=== PATIENT | female | born 1965 | race Caucasian/White ===

== ENCOUNTER 2018-07-13 01:29 | Emergency (ER) | payer OTHER ==
[~2018-07-13] VITALS: Ht 162.6 cm; Wt 63.5 kg
--- NOTE | 2018-07-13 01:50 | NUR ---
AFTER OBTAINING INTIAL VITAL AND EKG PATIENT REFUSING TO BE MONITOR. PACING ROOM AND ANXIOUS
--- NOTE | 2018-07-13 01:59 | NUR ---
PATIENT PULLED OUT IV
[2018-07-13] MEDS ORDERED: LORAZEPAM 2 MG/1 ML VIAL IM ONE (02:00)
[2018-07-13] MEDS ORDERED: HALOPERIDOL LACTATE 5 MG/1 ML VIAL IM ONE (02:00)
[2018-07-13] MEDS ORDERED: LORAZEPAM 2 MG/1 ML VIAL ONE (02:05)
[2018-07-13] MEDS ORDERED: HALOPERIDOL LACTATE 5 MG/1 ML VIAL ONE (02:05)
[2018-07-13 02:48] LABS: BASOPHILS % (AUTO) 0.5 % (0.0-2.0); EOSINOPHILS % (AUTO) 0.1 % (0.0-7.0); HEMATOCRIT 41.5 % (31.2-41.9); HEMOGLOBIN 13.8 g/dL (10.9-14.3); LYMPHOCYTES # (AUTO) 0.6 K/uL (20.0-40.0); LYMPHOCYTES % (AUTO) 8.3 % (20.5-51.5); MEAN CORPUSCULAR HEMOGLOBIN 31.4 uug (24.7-32.8); MEAN CORPUSCULAR HGB CONC 33 g/dL (32.3-35.6); MEAN CORPUSCULAR VOLUME 94.4 fL (75.5-95.3); MONOCYTES # (AUTO) 0.4 K/uL (2.0-10.0); MONOCYTES % (AUTO) 4.8 % (0.0-11.0); NEUTROPHILS # (AUTO) 6.7 K/uL (1.8-8.9); NEUTROPHILS % (AUTO) 86.3 % (38.5-71.5); PLATELET COUNT (AUTO) 216 K/uL (179-408); RED BLOOD CELL COUNT(AUTO) 4.39 MIL/uL (3.63-4.92); WHITE BLOOD COUNT (AUTO) 7.7 K/uL (3.8-11.8)
[2018-07-13 02:52] LABS: CARBON DIOXIDE 22 mmol/L (21-32); CHLORIDE 104 mmol/L (98-107); CREATININE 1.1 mg/dL (0.6-1.3); GLUCOSE 141 mg/dL (74-106); POTASSIUM 3.5 mmol/L (3.5-5.1); UREA NITROGEN, BLOOD 25 mg/dL (7-18)
[2018-07-13 02:57] LABS: ALANINE AMINOTRANSFERASE 26 U/L (14-59); ALKALINE PHOSPHATASE 86 U/L (50-136); ASPARTATE AMINOTRANSFERASE 26 U/L (15-37); BILIRUBIN,DIRECT 0.1 mg/dL (0.0-0.2); BILIRUBIN,TOTAL 0.3 mg/dL (0.2-1.0); TOTAL PROTEIN, SERUM 7.7 g/dL (6.4-8.2)
[2018-07-13 02:58] LABS: ACETAMINOPHEN < 2.0 ug/mL (10-30)
[2018-07-13 02:59] LABS: ETHANOL 68 MG/DL (0-0)
--- NOTE | 2018-07-13 04:45 | NUR ---
PATIENT SLEEPING WITH NO DISTRESS NOTED
--- NOTE | 2018-07-13 06:00 | NUR ---
PATIENT TOLERATED PO FLUID WITH NO N/V. A/OX3. SPEAKING IN CLEAR SENTANCES. DENIES SI,HOMICIDAL IDEATION.
[2018-07-13 06:13] VITALS: BP 145/78
--- NOTE | 2018-07-13 06:13 | NUR ---
Patient discharged to home in stable conditon. Written and verbal after care instructions given. Patient verbalizes understanding of instructions. WALKED OUT OF ER WITH NO DISTRESS NOTED
== END 2018-07-13 06:27 | disposition home or self-care (01) ==
LOC: ER 06:27
DX: F41.9 Anxiety disorder, unspecified (principal); Z88.0 Allergy status to penicillin
CPT/HCPCS: 36415; 71045; 80048; 80076; 85025; 93005; 96372 ×2; 99284; G0480 ×2; G0481; J1630; J2060; A4663

== ENCOUNTER 2023-04-10 18:49 | Emergency (ER) | payer MEDICAID, OTHER | END 2023-04-10 19:16 | disposition left against medical advice (07) | LOC: ER 18:58 | DX: F10.129 Alcohol abuse with intoxication, unspecified (principal) ==

== ENCOUNTER 2024-01-11 18:05 | Emergency (ER) | payer OTHER ==
[~2024-01-11] VITALS: Ht 160 cm; Wt 65.8 kg
[2024-01-11 18:48] LABS: BASOPHILS % (AUTO) 0.8 % (0.0-2.0); EOSINOPHILS # (AUTO) 0.3 K/uL (0.0-0.7); EOSINOPHILS % (AUTO) 4.3 % (0.0-7.0); HEMATOCRIT 41.5 % (31.2-41.9); HEMOGLOBIN 13.9 g/dL (10.9-14.3); LYMPHOCYTES # (AUTO) 1.6 K/uL (0.8-4.8); MEAN CORPUSCULAR HEMOGLOBIN 32.4 uug (24.7-32.8); MEAN CORPUSCULAR HGB CONC 33 g/dL (32.3-35.6); MONOCYTES # (AUTO) 0.5 K/uL (0.1-1.30); MONOCYTES % (AUTO) 8.1 % (0.0-11.0); NEUTROPHILS # (AUTO) 3.7 K/uL (1.8-8.9); NEUTROPHILS % (AUTO) 60.8 % (38.5-71.5); PLATELET COUNT (AUTO) 269 K/uL (179-408); RED BLOOD CELL COUNT(AUTO) 4.28 MIL/uL (3.63-4.92)
[2024-01-11 18:50] LABS: DIFFERENTIAL COMMENT 1
[2024-01-11 18:55] LABS: CALCIUM 8.9 mg/dL (8.5-10.1); CARBON DIOXIDE 25 mmol/L (21-32); CHLORIDE 104 mmol/L (98-107); CREATININE 0.8 mg/dL (0.6-1.3); GLUCOSE 105 mg/dL (74-106); POTASSIUM 3.7 mmol/L (3.5-5.1); SODIUM SERUM 141 mmol/L (136-145); UREA NITROGEN, BLOOD 18 mg/dL (7-18)
[2024-01-11 19:45] LABS: THYROID STIMULATING HORMONE 2.139 mIU/mL (0.358-3.740)
[2024-01-11] MEDS: IV NORMAL SALINE 500 ML IV ONE (20:20)
[2024-01-11 22:34] LABS: *BILIRUBIN,URIN NEGATIVE (NEGATIVE); *BLOOD, URINE NEGATIVE (NEGATIVE); *CLARITY,URINE CLEAR (CLEAR); *COLOR,URINE YELLOW (YELLOW); *KETONES,URINE TRACE (NEGATIVE); *PROTEIN,URINE NEGATIVE (NEGATIVE); *UROBILINOGEN,URINE 0.2 E.U./dl (NORMAL); LEUKOCYTE ESTERASE ,URINE NEGATIVE (NEGATIVE); NITRITE, URINE NEGATIVE (NEGATIVE); UGLUCOSE NEGATIVE (NEGATIVE)
[2024-01-11 22:50] LABS: RBC,URINE 0-3 /HPF (0-3)
[2024-01-11 22:51] LABS: BACTERIA,URINE FEW /HPF (NONE SEEN); CALCIUM OXALATE CRYSTALS,UR FEW /HPF (NONE SEEN); SQUAMOUS EPITHELIAL CELL,UR FEW /HPF (NONE SEEN); WBC,URINE 0-3 /HPF (0-3)
[2024-01-12 00:34] VITALS: BP 122/70; TEMP 97.9; O2SAT 96
== END 2024-01-12 00:30 | disposition home or self-care (01) ==
LOC: ER 18:05
DX: R55 Syncope and collapse (principal); K21.9 Gastro-esophageal reflux disease without esophagitis; F31.9 Bipolar disorder, unspecified; Z98.890 Other specified postprocedural states; Z88.0 Allergy status to penicillin
CPT/HCPCS: 99285; 96360; 71045; 80048; 81001; 82962; 83880; 84443; 85025; 84484 ×2; 36415; 93005; J7040; A4606; A4663

== ENCOUNTER 2024-05-10 22:29 | Emergency (ER) | payer OTHER ==
[~2024-05-10] VITALS: Ht 162.6 cm; Wt 54.4 kg
[2024-05-10 23:40] VITALS: BP 139/92; TEMP 98.6; O2SAT 98
== END 2024-05-10 23:41 | disposition home or self-care (01) ==
LOC: ER 22:29
DX: R07.9 Chest pain, unspecified (principal); R00.0 Tachycardia, unspecified; Z88.0 Allergy status to penicillin; K21.9 Gastro-esophageal reflux disease without esophagitis; F31.9 Bipolar disorder, unspecified; F41.9 Anxiety disorder, unspecified
CPT/HCPCS: 71045; 73110; A4606; A4663

== ENCOUNTER 2024-07-22 16:41 | Emergency (ER) | payer OTHER ==
[~2024-07-22] VITALS: Ht 160 cm; Wt 59.0 kg
[2024-07-22 18:47] LABS: BASOPHILS % (AUTO) 0.6 % (0.0-2.0); EOSINOPHILS # (AUTO) 0.3 K/uL (0.0-0.7); EOSINOPHILS % (AUTO) 4.7 % (0.0-7.0); HEMATOCRIT 40.1 % (31.2-41.9); HEMOGLOBIN 13.3 g/dL (10.9-14.3); LYMPHOCYTES # (AUTO) 1.9 K/uL (0.8-4.8); LYMPHOCYTES % (AUTO) 35.4 % (20.5-51.5); MEAN CORPUSCULAR HEMOGLOBIN 32.1 uug (24.7-32.8); MEAN CORPUSCULAR HGB CONC 33 g/dL (32.3-35.6); MEAN CORPUSCULAR VOLUME 96.8 fL (75.5-95.3); MONOCYTES # (AUTO) 0.5 K/uL (0.1-1.30); MONOCYTES % (AUTO) 8.9 % (0.0-11.0); NEUTROPHILS # (AUTO) 2.7 K/uL (1.8-8.9); NEUTROPHILS % (AUTO) 50.4 % (38.5-71.5); PLATELET COUNT (AUTO) 215 K/uL (179-408); RED BLOOD CELL COUNT(AUTO) 4.14 MIL/uL (3.63-4.92); RED CELL DISTRIBUTION WIDTH 13.3 % (12.3-17.7); WHITE BLOOD COUNT (AUTO) 5.4 K/uL (3.8-11.8)
[2024-07-22 18:53] LABS: CALCIUM 8.5 mg/dL (8.5-10.1); CARBON DIOXIDE 23 mmol/L (21-32); CHLORIDE 106 mmol/L (98-107); CREATININE 0.6 mg/dL (0.6-1.3); GLUCOSE 111 mg/dL (74-106); POTASSIUM 3.6 mmol/L (3.5-5.1); SODIUM SERUM 143 mmol/L (136-145); UREA NITROGEN, BLOOD 19 mg/dL (7-18)
[2024-07-22 18:59] LABS: ALANINE AMINOTRANSFERASE 31 U/L (14-59); ALBUMIN 3.4 g/dL (3.4-5.0); ALKALINE PHOSPHATASE 89 U/L (50-136); ASPARTATE AMINOTRANSFERASE 23 U/L (15-37); BILIRUBIN,DIRECT 0.1 mg/dL (0.0-0.2); BILIRUBIN,TOTAL 0.2 mg/dL (0.2-1.0); TOTAL PROTEIN, SERUM 6.6 g/dL (6.4-8.2)
[2024-07-23 06:09] VITALS: BP 122/78; O2SAT 98
== END 2024-07-23 06:27 | disposition home or self-care (01) ==
LOC: ER 17:02
DX: S52.692A Other fracture of lower end of left ulna, initial encounter for closed fracture (principal); F10.129 Alcohol abuse with intoxication, unspecified; M79.632 Pain in left forearm; M79.642 Pain in left hand; R51.9 Headache, unspecified; Y90.9 Presence of alcohol in blood, level not specified; Z88.0 Allergy status to penicillin; X58.XXXA Exposure to other specified factors, initial encounter; Y93.89 Activity, other specified; Y92.89 Other specified places as the place of occurrence of the external cause; Y99.8 Other external cause status
CPT/HCPCS: 36415; 70450; 71045; 72125; 73090; 73130; 84484; 85025; A4606; A4663; G0480

== ENCOUNTER 2024-09-03 20:08 | Emergency (ER) | payer OTHER ==
[~2024-09-03] VITALS: Ht 160 cm; Wt 59.0 kg
[2024-09-03 20:37] LABS: PLATELET COUNT (AUTO) 212 K/uL (179-408); RED BLOOD CELL COUNT(AUTO) 4.18 MIL/uL (3.63-4.92); RED CELL DISTRIBUTION WIDTH 13.3 % (12.3-17.7); WHITE BLOOD COUNT (AUTO) 4.6 K/uL (3.8-11.8)
[2024-09-03 20:45] LABS: CREATININE 0.6 mg/dL (0.6-1.3); SODIUM SERUM 144 mmol/L (136-145); UREA NITROGEN, BLOOD 14 mg/dL (7-18)
[2024-09-03 20:47] LABS: ETHANOL 137.0 MG/DL (0-10)
[2024-09-03 20:51] LABS: ASPARTATE AMINOTRANSFERASE 25 U/L (15-37); TOTAL PROTEIN, SERUM 6.7 g/dL (6.4-8.2)
[2024-09-03] MEDS: IV NS 1000 ML 1,000 ML IV ONE (21:28)
[2024-09-03] MEDS: ACETAMINOPHEN 500 MG TABLET PO ONE (21:42)
[2024-09-03 21:59] LABS: *AMPHETAMINE, URINE POSITIVE (NEGATIVE); *BARBITURATE, URINE NEGATIVE (NEGATIVE); *BENZODIAZEPINE, URINE NEGATIVE (NEGATIVE); *CANNABINOID, URINE NEGATIVE (NEGATIVE); *COCCAINE, URINE NEGATIVE (NEGATIVE); *OPIATE, URINE NEGATIVE (NEGATIVE); *PHENCYCLIDINE SCREEN,URINE NEGATIVE (NEGATIVE); FENTANYL, URINE NEGATIVE (NEGATIVE)
[2024-09-03] MEDS ORDERED: IV NORMAL SALINE 250 ML IV ONE (22:01)
[2024-09-03] MEDS ORDERED: IOHEXOL 350 100 ML INFUS..BTL ONE (22:02)
[2024-09-03] MEDS ORDERED: SWABABLE VALVE TRANSFER SET EA MC ONE (22:02)
[2024-09-04 01:26] VITALS: BP 119/73; TEMP 98.1; O2SAT 97
== END 2024-09-04 01:28 | disposition home or self-care (01) ==
LOC: ER 20:19
DX: F10.129 Alcohol abuse with intoxication, unspecified (principal); F19.10 Other psychoactive substance abuse, uncomplicated; R07.89 Other chest pain; R68.83 Chills (without fever); R06.02 Shortness of breath; R05.9 Cough, unspecified; R22.43 Localized swelling, mass and lump, lower limb, bilateral; E86.0 Dehydration; F31.9 Bipolar disorder, unspecified; F41.9 Anxiety disorder, unspecified; K21.9 Gastro-esophageal reflux disease without esophagitis; F14.10 Cocaine abuse, uncomplicated; R07.9 Chest pain, unspecified; Z86.711 Personal history of pulmonary embolism; Z87.891 Personal history of nicotine dependence; Z88.0 Allergy status to penicillin; Z90.49 Acquired absence of other specified parts of digestive tract; Z60.2 Problems related to living alone; Z79.899 Other long term (current) drug therapy
CPT/HCPCS: 80076; 80048; 83880; 85025; 85379; 85730; 84484; 36415; 71045; 71275; 93005; 99285; 96360; 80320; 80307; Q9967; J7040; A4606; A4663; A9150; G0480

== ENCOUNTER 2024-10-23 15:02 | Emergency (ER) | payer OTHER ==
[~2024-10-23] VITALS: Ht 160 cm; Wt 59.0 kg
[2024-10-23 15:38] LABS: PLATELET COUNT (AUTO) 208 K/uL (179-408); RED BLOOD CELL COUNT(AUTO) 4.21 MIL/uL (3.63-4.92); RED CELL DISTRIBUTION WIDTH 13.8 % (12.3-17.7); WHITE BLOOD COUNT (AUTO) 5.3 K/uL (3.8-11.8)
[2024-10-23 15:47] LABS: CREATININE 0.7 mg/dL (0.6-1.3); SODIUM SERUM 148 mmol/L (136-145); UREA NITROGEN, BLOOD 14 mg/dL (7-18)
[2024-10-23 15:48] LABS: ETHANOL 129.0 MG/DL (0-10)
[2024-10-23 15:52] LABS: ASPARTATE AMINOTRANSFERASE 21 U/L (15-37); TOTAL PROTEIN, SERUM 7.1 g/dL (6.4-8.2)
[2024-10-23] MEDS ORDERED: THIAMINE HCL 100 MG TABLET ONE (16:39)
[2024-10-23] MEDS ORDERED: POTASSIUM BICARBONATE/CIT AC 25 MEQ TABLET.EFF ONE (16:39)
[2024-10-23] MEDS: THIAMINE HCL 100 MG TABLET PO ONE (16:46)
[2024-10-23] MEDS: POTASSIUM BICARBONATE/CIT AC 25 MEQ TABLET.EFF PO ONE (16:46)
[2024-10-23 21:49] LABS: *BILIRUBIN,URIN NEGATIVE (NEGATIVE); *CLARITY,URINE CLEAR (CLEAR); *COLOR,URINE YELLOW (YELLOW); *KETONES,URINE TRACE (NEGATIVE); *PROTEIN,URINE NEGATIVE (NEGATIVE); *UROBILINOGEN,URINE 1.0 E.U./dl (NORMAL); LEUKOCYTE ESTERASE ,URINE NEGATIVE (NEGATIVE); NITRITE, URINE NEGATIVE (NEGATIVE); UGLUCOSE NEGATIVE (NEGATIVE)
[2024-10-23 21:53] LABS: *BLOOD, URINE NEGATIVE (NEGATIVE)
[2024-10-23 22:02] LABS: *AMPHETAMINE, URINE POSITIVE (NEGATIVE); *BARBITURATE, URINE NEGATIVE (NEGATIVE); *BENZODIAZEPINE, URINE NEGATIVE (NEGATIVE); *CANNABINOID, URINE NEGATIVE (NEGATIVE); *COCCAINE, URINE NEGATIVE (NEGATIVE); *OPIATE, URINE NEGATIVE (NEGATIVE); *PHENCYCLIDINE SCREEN,URINE NEGATIVE (NEGATIVE); FENTANYL, URINE NEGATIVE (NEGATIVE)
[2024-10-24 01:50] VITALS: BP 132/71
[2024-10-24 07:13] VITALS: BP 132/71; TEMP 98; O2SAT 100
== END 2024-10-24 07:13 | disposition home or self-care (01) ==
LOC: ER 15:02
DX: F10.129 Alcohol abuse with intoxication, unspecified (principal); E87.6 Hypokalemia; K21.9 Gastro-esophageal reflux disease without esophagitis; F31.9 Bipolar disorder, unspecified; F41.9 Anxiety disorder, unspecified; F19.10 Other psychoactive substance abuse, uncomplicated; Z86.711 Personal history of pulmonary embolism; Z88.0 Allergy status to penicillin; Z90.49 Acquired absence of other specified parts of digestive tract; Z60.2 Problems related to living alone; Z20.822 Contact with and (suspected) exposure to COVID-19; Z79.899 Other long term (current) drug therapy; Y90.6 Blood alcohol level of 120-199 mg/100 ml
CPT/HCPCS: 36415; 71045; 84484; 85025; 98960; A4606; A4663; G0480

== ENCOUNTER 2024-11-03 22:02 | Emergency (ER) | payer OTHER ==
[~2024-11-03] VITALS: Ht 170.2 cm; Wt 63.5 kg
[2024-11-03] MEDS: IV NORMAL SALINE 1000 ML BAG IV ONE (22:50)
[2024-11-03] MEDS: ONDANSETRON 4 MG/2 ML VIAL IV ONE (22:52)
[2024-11-03 22:53] LABS: PLATELET COUNT (AUTO) 230 K/uL (179-408); RED BLOOD CELL COUNT(AUTO) 4.37 MIL/uL (3.63-4.92); RED CELL DISTRIBUTION WIDTH 13.7 % (12.3-17.7); WHITE BLOOD COUNT (AUTO) 5.2 K/uL (3.8-11.8)
[2024-11-03 23:02] LABS: ETHANOL 207.0 MG/DL (0-10)
[2024-11-03 23:27] LABS: CREATININE 0.6 mg/dL (0.6-1.3); SODIUM SERUM 133.0 mmol/L (136-145); UREA NITROGEN, BLOOD 17.0 mg/dL (7-18)
[2024-11-03 23:33] LABS: ASPARTATE AMINOTRANSFERASE 22.0 U/L (15-37); TOTAL PROTEIN, SERUM 7.2 g/dL (6.4-8.2)
[2024-11-04 08:00] VITALS: BP 106/54; O2SAT 95
== END 2024-11-04 09:29 | disposition left against medical advice (07) ==
LOC: ER 22:14
DX: F10.129 Alcohol abuse with intoxication, unspecified (principal); I51.9 Heart disease, unspecified; F32.A Depression, unspecified; F41.9 Anxiety disorder, unspecified; R06.02 Shortness of breath; K21.9 Gastro-esophageal reflux disease without esophagitis; Z59.00 Homelessness unspecified; Z86.711 Personal history of pulmonary embolism; Z88.0 Allergy status to penicillin; Z90.49 Acquired absence of other specified parts of digestive tract; Y90.0 Blood alcohol level of less than 20 mg/100 ml
CPT/HCPCS: 80076; 80048; 83690; 83735; 85025; 36415; 99285; 96361; 96374; 80320; J2405; J7040; A4606; A4663; G0480